=== PATIENT | male | born 2005 | race African-American/Black ===

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

== ENCOUNTER 2024-10-05 19:21 | Emergency (ER) | payer OTHER, SELFPAY ==
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
[2024-10-05 19:24] VITALS: BP 134/60; PULSE 51; RESP 18; TEMP 36.7; O2SAT 100; BMI 24.2
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
[2024-10-05 20:52] VITALS: BP 147/84; PULSE 100; RESP 20; TEMP 36.9; O2SAT 99
[2024-10-05] MEDS: Ketorolac Tromethamine 30 MG/ML VIAL IM (21:56)
[2024-10-05] MEDS: Ondansetron ODT 4 MG TAB.RAPDIS TRANSLINGU (21:56)
[2024-10-05 22:53] VITALS: BP 147/84; PULSE 100; RESP 20; TEMP 36.9; O2SAT 99
== END 2024-10-05 22:54 | disposition home or self-care (01) ==
PROVIDERS: Emergency Provider Emergency Medicine
DX: S06.0X0A Concussion without loss of consciousness, initial encounter (principal); S00.81XA Abrasion of other part of head, initial encounter; R11.0 Nausea; R51.9 Headache, unspecified; M25.531 Pain in right wrist; R40.2410 Glasgow coma scale score 13-15, unspecified time; M79.641 Pain in right hand; F17.210 Nicotine dependence, cigarettes, uncomplicated; Y04.2XXA Assault by strike against or bumped into by another person, initial encounter; Y93.89 Activity, other specified; Y92.89 Other specified places as the place of occurrence of the external cause; Y99.8 Other external cause status
CPT/HCPCS: 70450; 73110; 73130; 96372; 99284; J1885

== ENCOUNTER 2025-06-25 09:41 | Emergency (ER) | payer OTHER, SELFPAY ==
[2025-06-25 09:49] VITALS: BP 129/86; BP 172/88; PULSE 44; PULSE 73; RESP 22; O2SAT 100; O2SAT 98; BMI 23.4
[2025-06-25 10:00] VITALS: BP 127/57; PULSE 69; RESP 15; TEMP 36.9; O2SAT 99
--- NOTE | 2025-06-25 10:23 | PC.NURSE ---
sima from home - recently took testosterone pills x last night. pt states he buys them online because ever since he was little, he thought he lacked testosterone. diffuse abd pain w/ associated nausea/vomiting/chills since taking medication. actively vomiting upon ED arrival. upon ED arrival - a&ox4. vss and up to date aside from being sinus gregg on the monitor. per pt as well as pt's mother, this is his baseline - saw [facility] - no known etiology. 18gIV placed in the right AC - IVF/medication administered per provider order. effectiveness pending. pt otherwise on RA w/o difficulty - no sob/wob noted. respirations even/unlabored. mother bedside for support. plan of care ongoing. call pérez placed within reach.
[2025-06-25 10:24] LABS: Hematocrit 45.0 % (42.0-52.0); Hemoglobin 15.6 g/dl (14.0-18.0); Imm Gran Abs Auto 0.09 X10*3/uL (0.00-0.03); Imm Gran Pct Auto 0.5 % (0.0-0.4); Lymphocytes Absolute Auto 0.6 X10*3/uL (1.2-4.9); MANUAL DIFF FLAG SCAN; Mean Corpuscular HGB Conc 34.7 g/dl (31.0-36.0); Mean Corpuscular Hemoglobin 30.0 pg (27.0-33.0); Mean Corpuscular Volume 86.5 fL (80.0-98.0); NRBC Abs Auto 0.000 X10*3/uL (0.0-0.012); NRBC Pct Auto 0.0 /100WBC (0.0-0.2); Platelet Count 249 X10*3/uL (160-400); Red Blood Count 5.20 X10*6/uL (4.60-5.80); SCAN SMEAR FLAG 1; White Blood Count 18.4 X10*3/uL (4.8-10.8)
--- NOTE | 2025-06-25 10:25 | ED.NAVMDI ---
HPI - Nausea/Vomiting/Diarrhea General Chief complaint: Nausea/Vomiting/Diarrhea Stated complaint: nausea and vomitting Time Seen by Provider: 06/25/25 09:47 Source: patient Limitations: no limitations History of Present Illness HPI Narrative: This is a 19 years old male presented to the emergency department complaining of nausea vomiting unable to keep any fluid. He has a history of PTSD, he use testosterone which he buy on line. Denies any fever or chills MD elicited complaint: nausea and vomiting Onset (ago): day(s) (2) Description of vomiting: watery Associated nausea: Yes Location of pain: none Radiation: diffuse Severity: mild Exacerbating factors: none Relieving factors: none Associated symptoms: denies other symptoms Related Data Previous Rx's ?Medication ?Instructions ?Recorded escitalopram oxalate 10 mg tablet 10 mg PO DAILY 30 days #30 tabs 11/12/23 nicotine (polacrilex) 4 mg gum 4 mg buccal Q2H PRN nicotine 11/12/23 cravings 30 days #100 ea trazodone 50 mg tablet 50 mg PO BEDTIME PRN Insomnia 30 11/12/23 days #30 tabs acetaminophen 500 mg tablet 500 mg PO Q6H PRN fever or pain 10/05/24 #14 tabs ibuprofen 600 mg tablet 600 mg PO TID PRN fever or pain 10/05/24 #14 tabs ondansetron 4 mg disintegrating 4 mg PO Q6H PRN nausea and 10/05/24 tablet vomiting #14 tabs Allergies Allergy/AdvReac Type Severity Reaction Status Date / Time No Known Allergies Allergy Verified 06/25/25 09:53 Review of Systems Constitutional: Constitutional: Reports no additional constitutional complaints Cardiovascular: Cardiovascular: Reports no additional cardiovascular complaints Gastrointestinal: Gastrointestinal: Reports nausea and Reports vomiting [facility] Past Medical History Attestation statement: The following information was validated with the patient. Medical History ADHD MDD (major depressive disorder), recurrent episode, moderate PTSD (post-traumatic stress disorder) Social History Social History Household Members: Family Housing: House Do you presently have visiting nurse or other home services: No Alcohol intake: current Alcohol intake frequency: holidays/special occasions only Patient Tobacco Use Status: Current everyday Tobacco user Years Smoked: 2 Smoked in Last 30 Days: No e-Cigarette/Vaping Use: Currently Using Second Hand Smoke Exposure: Yes Use of substances other than those prescribed or required for medical reasons: No Substance Use Type: Hallucinogens and Marijuana Advance Directives: No Advance Directives Information Provided: No Do you have a plan to hurt others: No Plan service: No Sexual orientation: Straight/Heterosexual Physical Exam Exam: Exam: No acute distress looks well Vital Signs: Vital Signs: Last Vital Signs Temp 98.5 F 06/25/25 13:53 Pulse 79 06/25/25 13:53 Resp 20 06/25/25 13:53 BP 133/72 06/25/25 13:53 Pulse Ox 99 06/25/25 13:53 O2 Del Method Room Air 06/25/25 13:53 BMI result Body Mass Index 23.4 Const: General: cooperative Nutritional Appearance: average body habitus Orientation/consciousness: patient oriented x3 HEENT: Head: Yes normal to inspection Face and sinus: Yes normal facial exam Mouth: Normal oral and palatal mucosa present Neck: Neck: Yes normal visual inspection Chest: Chest palpation & inspection: normal inspection of the chest Resp: Effort & Inspection: normal respiratory effort Auscultation: clear to auscultation bilaterally Cardio: Rate: regular rate Rhythm: regular rhythm GI: Inspection: Yes normal to inspection Palpation (GI): Soft to palpation, not firm and nontender Skin: General skin exam: no rashes or lesions noted Lesions: no lesions Rashes: no rashes Neuro: General: patient oriented x3 Course Reevaluation(s) Reevaluation #1: On re-examination he is doing much better completely asymptomatic smiling tolerating p.o. well he can be discharged home, spoke with the mother Time: 13:46 Medications Administered Discontinued Medications Generic Name Dose Route Start Last Admin Trade Name Freq PRN Reason Stop Dose Admin Diphenhydramine HCl 12.5 mg 06/25/25 10:03 06/25/25 10:14 Diphenhydramine Hcl 50 Mg/Ml Vial IVPUSH 06/25/25 10:04 12.5 mg ONCE ONE Administration Sodium Chloride 1,000 mls @ 999 mls/hr 06/25/25 10:00 06/25/25 11:46 Ns IVCONT 06/25/25 11:00 Infused .Q1H1M JOSE Infusion Sodium Chloride 1,000 mls @ 999 mls/hr 06/25/25 12:00 06/25/25 13:41 Ns IVCONT 06/25/25 13:00 Infused .Q1H1M JOSE Infusion Metoclopramide HCl 10 mg 06/25/25 10:03 06/25/25 10:14 Metoclopramide Hcl 10 Mg/2 Ml Vial IVPUSH 06/25/25 10:04 10 mg ONCE ONE Administration Medical Decision Making Medical Decision Making [facility] Narrative: Patient is here complaining of nausea and vomiting we will establish IV access administer IV fluids antiemetic and reassessed Differential Diagnosis Differential Diagnoses: The differential diagnosis associated with the presentation includes Gastroenteritis/viral syndrome Admission/Observation Consideration of admission/observation: Escalation of care including admission/observation considered Lab Data [facility] Lab Attestation statement: I reviewed the patient's lab results. 06/25/25 10:17 06/25/25 10:17 Labs: Lab Results 06/25/25 Range/Units 10:17 WBC 18.4 H (4.8-10.8) X10*3/uL RBC 5.20 (4.60-5.80) X10*6/uL Hgb 15.6 (14.0-18.0) g/dl Hct 45.0 (42.0-52.0) % MCV 86.5 (80.0-98.0) fL MCH 30.0 (27.0-33.0) pg MCHC 34.7 (31.0-36.0) g/dl RDW 11.9 (11.0-16.0) % Plt Count 249 (160-400) X10*3/uL MPV 10.2 (9.4-12.4) fL Immature Gran % (Auto) 0.5 H (0.0-0.4) % Neut % (Auto) 92.8 H (45-73) % Lymph % (Auto) 3.1 L (20-40) % [place] % (Auto) 3.3 (2-11) % Eos % (Auto) 0.1 (0-4) % Baso % (Auto) 0.2 (0-2) % Lymph # (Auto) 0.6 L (1.2-4.9) X10*3/uL [place] # (Auto) 0.6 (0.1-1.2) X10*3/uL Eos # (Auto) 0.0 (0.0-0.4) X10*3/uL Baso # (Auto) 0.0 (0.0-0.2) X10*3/uL Abs Immat Gran (auto) 0.09 H (0.00-0.03) X10*3/uL Absolute Neuts (auto) 17.1 H (2.0-8.3) x10*3/uL Absolute Nucleated RBC 0.000 (0.0-0.012) X10*3/uL Nucleated RBC % (auto) 0.0 (0.0-0.2) /100WBC Smear Tech's Comments VERIFIED Sodium 140 (135-145) mmol/L Potassium 4.0 (3.3-5.1) mmol/L Chloride 108 (96-108) mmol/L Carbon Dioxide 22 (22-29) mmol/L Anion Gap 14 (12-20) BUN 18 H (9-16) mg/dL Creatinine 0.94 (0.5-1.4) mg/dL Estim Creat Clear Calc 149.8 Estimated GFR > 60 Random Glucose 134 H (60-115) mg/dL Calcium 8.7 D (8.4-10.2) mg/dL Total Bilirubin 1.3 H (0.0-1.0) mg/dL AST 23 (5-37) U/L ALT 15 (0-40) U/L Alkaline Phosphatase 81 (39-117) U/L Total Protein 7.3 (6.5-8.0) g/dL Albumin 4.5 (3.5-5.0) g/dL Lipase 16 (8-78) U/L Independent Historian mother Discharge Plan Discharge Clinical Impression: Vomiting Patient Disposition: Home, Self-Care Instructions: Acute Nausea and Vomiting (DC) Additional Instructions: Follow-up with your primary care physician stay on liquid diet return to emergency room if you worse any concern Prescriptions: No Action ondansetron 4 mg tablet,disintegrating 4 mg PO Q6H PRN (Reason: nausea and vomiting) Qty: 14 0RF acetaminophen 500 mg tablet 500 mg PO Q6H PRN (Reason: fever or pain) Qty: 14 0RF ibuprofen 600 mg tablet 600 mg PO TID PRN (Reason: fever or pain) Qty: 14 0RF nicotine (polacrilex) 4 mg gum 4 mg buccal Q2H PRN (Reason: nicotine cravings) 30 Days Qty: 100 0RF escitalopram oxalate 10 mg Tablet 10 mg PO DAILY 30 Days Qty: 30 1RF trazodone 50 mg Tablet 50 mg PO BEDTIME PRN (Reason: Insomnia) 30 Days Qty: 30 1RF Referrals: Aby Hanks MD [Primary Care Provider, Pediatrics] - 06/29/25 Interventions: ED Discharge Assessment Last Done: 06/25/25 13:53 Discharge Date/Time: 06/25/25 13:57 Print Language: Yakut
[2025-06-25 10:39] LABS: Alanine Aminotransferase 15 U/L (0-40); Albumin Level 4.5 g/dL (3.5-5.0); Alkaline Phosphatase 81 U/L (39-117); Anion Gap 14 (12-20); Aspartate Amino Transferase 23 U/L (5-37); Blood Urea Nitrogen 18 mg/dL (9-16); Calcium 8.7 mg/dL (8.4-10.2); Carbon Dioxide 22 mmol/L (22-29); Chloride 108 mmol/L (96-108); Creatinine Clr Calc Pharmacy 149.8; Estimated Glomerular Filt Rate > 60; Lipase 16 U/L (8-78); Potassium 4.0 mmol/L (3.3-5.1); Sodium 140 mmol/L (135-145); Total Protein 7.3 g/dL (6.5-8.0)
--- NOTE | 2025-06-25 11:48 | ECG_ITS ---
Test Reason : ABDOMINAL PAIN Blood Pressure : */* mmHG Vent. Rate : 58 BPM Atrial Rate : 58 BPM P-R Int : 164 ms QRS Dur : 102 ms QT Int : 436 ms P-R-T Axes : 38 57 38 degrees QTcB Int : 428 ms Sinus bradycardia with marked sinus arrhythmia Otherwise normal ECG When compared with ECG of 07-Nov-2023 02:14, Vent. rate has decreased by 29 bpm Questionable change in QRS axis Non-specific change in ST segment in Inferior leads Nonspecific T wave abnormality now evident in Anterior leads Nonspecific T wave abnormality no longer evident in Lateral leads Referred By: Chuy Cuenca Electronically Signed By: SRIKANTH LAMB MD
[2025-06-25 12:00] VITALS: BP 133/72; PULSE 79; RESP 20; TEMP 36.9; O2SAT 99
[2025-06-25 13:53] VITALS: BP 133/72; PULSE 79; RESP 20; TEMP 36.9; O2SAT 99
== END 2025-06-25 13:57 | disposition home or self-care (01) ==
PROVIDERS: Emergency Provider Emergency Medicine; PCP Pediatrics
DX: R11.2 Nausea with vomiting, unspecified (principal); R00.1 Bradycardia, unspecified; I49.8 Other specified cardiac arrhythmias; Z79.899 Other long term (current) drug therapy
CPT/HCPCS: 36415; 80053; 83690; 85025; 93005; 96361; 96374; 96375; 99284; 99285; J1200; J2765

== ENCOUNTER → 2025-06-25 11:48 | Outpatient (BNV) | payer OTHER, SELFPAY | PROVIDERS: Emergency Provider Emergency Medicine; PCP Pediatrics; Visit Provider Internal Medicine Cardiovascular Disease | DX: I49.9 Cardiac arrhythmia, unspecified (principal); R00.1 Bradycardia, unspecified | CPT/HCPCS: 93010 ==